=== PATIENT | female | born 1975 | race Caucasian/White ===

== ENCOUNTER 2023-06-15 20:57 | Emergency (ER) | payer OTHER ==
[~2023-06-15] VITALS: Ht 154.9 cm; Wt 99.1 kg
[2023-06-15 22:24] VITALS: BP 123/84; PULSE 92; RESP 16; O2SAT 100
[2023-06-16] MEDS ORDERED: IBUP1TAB5 PO (04:01)
[2023-06-16] MEDS ORDERED: CYCL-611 PO (04:01)
== END 2023-06-16 05:42 | disposition home or self-care (01) ==
LOC: ER 20:57
DX: S39.012A Strain of muscle, fascia and tendon of lower back, initial encounter (principal); M51.36 Other intervertebral disc degeneration, lumbar region; Z88.8 Allergy status to other drugs, medicaments and biological substances; W07.XXXA Fall from chair, initial encounter; Y93.89 Activity, other specified; Y92.89 Other specified places as the place of occurrence of the external cause; Y99.8 Other external cause status
CPT/HCPCS: 72131